=== PATIENT | male | born 1960 | race Caucasian/White ===

== ENCOUNTER → 2021-02-18 | Outpatient (CLI) | payer OTHER ==
[~2021-02-18] MED LIST: PROHANCE 279.3MG/ML 15ML VIAL As Ordered ONE
--- NOTE | 2021-02-18 15:34 | REP ---
INDICATION: ELEVATED PSA. COMPARISON: None. TECHNIQUE: Using a phased array surface coil, small wakay-pu-ndbr imaging was acquired using T2 weighted scans in the axial, coronal, and sagittal imaging planes. Small oloft-ge-prdu diffusion-weighted sequences are acquired. Small xtgju-lv-teiw axial T1 weighted scans are acquired dynamically before and after the intravenous administration of 15 mL of ProHance. Imaging is reviewed using the [employer] computer-aided detection system. FINDINGS: Visualized osseous structures of the pelvis demonstrate a subcortical low signal bone lesion in the proximal right femur at the level of the lesser trochanter laterally. There is no associated soft tissue mass. Diameter is 1.3 cm. No other bone lesions are visualized. No adenopathy is seen in the pelvis. There are small bilateral inguinal hernias, with fluid seen in the right inguinal hernia. There is sigmoid diverticulosis. There is a small diverticulum at the right base of the bladder. Prostate measures 4.8 x 3.8 x 4.1 cm for total volume of 37.07 cc. There are 3 regions of interest identified in [facility] CAD: In the right mid and apical transitional zone there is an area of ill-defined low signal on T2 and diffusion-weighted imaging. There is predominantly type 3 enhancement in this region. The area measures 1.4 x 0.7 x 2.1 cm for total volume of 1.69 cc. Overall level of suspicion is 3/5 with clinically significant cancer equivocal. Secondly in the left basilar and mid anterior transitional zone there is an area of low signal on T2 and diffusion-weighted imaging with predominantly ill-defined margins. There is probably type 3 internal enhancement. The area measures 1.8 x 1.1 x 1.7 cm for total volume of 2.20 cc. Overall level of suspicion is 3/5 with clinically significant cancer equivocal. Finally, involving virtually the entire peripheral zone bilaterally, there is diffuse mildly low signal on T2 weighted and diffusion-weighted images. There is predominantly diffuse type 3 enhancement. The approximate measurements are 4.8 x 0.6 x 3.1 cm, total volume 12.79 cc. This most likely represents diffuse prostatitis. Overall level of suspicion is 1/5 a clinically significant cancer very low. IMPRESSION: Three regions of interest identified as discussed in detail above. Two are located in the transitional zone, overall level of suspicion 3/5 with clinically significant cancer equivocal. The third involves the entire peripheral zone bilaterally and likely represents diffuse prostatitis. On T1 weighted images of the pelvis there is a low signal bone lesion in the proximal right femur which is nonspecific. Recommend correlation with plain films of the right hip. <Electronically signed by Himanshu Garber > 02/18/21 2084
== END ==
LOC: M RAD 12:55
PROVIDERS: ATTEND Specialist
DX: R93.5 Abnormal findings on diagnostic imaging of other abdominal regions, including retroperitoneum (principal); R97.20 Elevated prostate specific antigen [PSA]; M89.8X5 Other specified disorders of bone, thigh
CPT/HCPCS: 72197; A9576